=== PATIENT | male | born 1935 | race African-American/Black ===

== ENCOUNTER → 2017-02-15 | Outpatient (CLI) | payer OTHER ==
[~2017-02-15] MED LIST: BRIMONIDINE5 ML OU; COSOPT EYE DROP10 ML OU; LISINOPRIL PO; METFORMIN PO; METOPROLOL SUCC25 MG PO; PATIENT'S PHARMACY; ZOCOR PO
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
== END | disposition home or self-care (01) ==
LOC: CNUC 08:31
DX: C61 Malignant neoplasm of prostate (principal)
CPT/HCPCS: 78306; A9503